=== PATIENT | female | born 1990 | race Hispanic/Latino ===

== ENCOUNTER 2019-10-29 10:48 | Emergency (ER) | payer SELFPAY ==
[2019-10-29] MEDS ORDERED: ONDANSETRON HCL 4 MG/2 ML VIAL ONE ×2 (11:29→14:49)
[2019-10-29] MEDS ORDERED: ACETAMINOPHEN EXTRA STRENGTH 500 MG TABLET ONE (11:30)
[2019-10-29 11:36] LABS: BASOPHILS % (AUTO) 0.4 % (0.0-5.0); EOSINOPHILS % (AUTO) 1.2 % (0.0-8.0); HEMATOCRIT 35.7 % (36-48); LYMPHOCYTES % (AUTO) 33.3 % (21.0-51.0); MEAN CORPUSCULAR HEMOGLOBIN 30.8 pg (27.0-33.0); MEAN CORPUSCULAR HGB CONC 33.6 g/dL (32.0-36.0); MEAN CORPUSCULAR VOLUME 91.5 fL (79-99); MONOCYTES % (AUTO) 6.3 % (3.0-13.0); NEUTROPHILS % (AUTO) 58.6 % (40.0-77.0); PLATELET COUNT (AUTO) 183 K/uL (130-400); RED CELL DISTRIBUTION WIDTH 11.4 % (11.0-15.5); WHITE BLOOD COUNT (AUTO) 5.2 K/uL (4.8-10.8)
[2019-10-29 12:14] LABS: APPEARANCE,URINE Clear (CLEAR); BILIRUBIN,URINE Negative (NEGATIVE); COLOR,URINE Yellow (YELLOW); GLUCOSE, URINE (UA) Negative (NEGATIVE); HCG,QUAL RESULT NEGATIVE (NEGATIVE); KETONES,URINE Negative (NEGATIVE); LEUKOCYTE ESTERASE ,URINE Negative (NEGATIVE); NITRATE,URINE Negative (NEGATIVE); OCCULT BLOOD,URINE Negative (NEGATIVE); PH,URINE 5.5 (5.0-8.0); PROTEIN,URINE Negative (NEGATIVE)
[2019-10-29 12:46] LABS: CREATININE 0.9 mg/dL (0.5-1.5)
[2019-10-29] MEDS ORDERED: KETOROLAC TROMETHAMINE 30MG/ML ONE (12:47)
[2019-10-29 12:50] LABS: BILIRUBIN,TOTAL 0.2 mg/dL (0.2-1.0); TOTAL PROTEIN, SERUM 7.5 g/dL (6.0-8.3)
[2019-10-29] MEDS ORDERED: CEFTRIAXONE SODIUM 500 MG VIAL ONE (14:48)
[2019-10-29] MEDS ORDERED: AZITHROMYCIN 250 MG TABLET PO ONE (14:49)
[2019-10-29] MEDS ORDERED: LIDOCAINE HCL-MPF 1% 2ML VIAL ONE (14:50)
[2019-10-30] MEDS ORDERED: NITROGLYCERIN 1GM/1 INCH PACKET TD ONE (09:27)
== END 2019-10-29 15:02 | disposition home or self-care (01) ==
LOC: EDH 10:48
DX: R10.2 Pelvic and perineal pain (principal); R11.0 Nausea; J45.909 Unspecified asthma, uncomplicated; Z98.890 Other specified postprocedural states
CPT/HCPCS: 36415; 74177; 76856; 80053; 81003; 81025; 85025; 87210; 87486; 87797; 96372; 96374; 96375; 96376; 99285; J0696; J1885; J2405 ×2; J3490

== ENCOUNTER 2020-03-01 06:43 | Emergency (ER) | payer MEDICAID, OTHER ==
[2020-03-01 07:27] LABS: BASOPHILS % (AUTO) 0.2 % (0.0-5.0); EOSINOPHILS % (AUTO) 0.2 % (0.0-8.0); HEMATOCRIT 33.9 % (36-48); LYMPHOCYTES % (AUTO) 10.1 % (21.0-51.0); MEAN CORPUSCULAR HEMOGLOBIN 32.7 pg (27.0-33.0); MEAN CORPUSCULAR HGB CONC 34.5 g/dL (32.0-36.0); MEAN CORPUSCULAR VOLUME 94.7 fL (79-99); MONOCYTES % (AUTO) 5.9 % (3.0-13.0); NEUTROPHILS % (AUTO) 83.4 % (40.0-77.0); PLATELET COUNT (AUTO) 169 K/uL (130-400); RED BLOOD CELL COUNT(AUTO) 3.58 MIL/uL (4.00-5.50); RED CELL DISTRIBUTION WIDTH 12.9 % (11.0-15.5); WHITE BLOOD COUNT (AUTO) 5.2 K/uL (4.8-10.8)
[2020-03-01 07:27] LABS: APPEARANCE,URINE CLEAR (CLEAR); BILIRUBIN,URINE NEGATIVE (NEGATIVE); COLOR,URINE YELLOW (YELLOW); GLUCOSE, URINE (UA) NEGATIVE (NEGATIVE); KETONES,URINE NEGATIVE (NEGATIVE); LEUKOCYTE ESTERASE ,URINE NEGATIVE (NEGATIVE); NITRATE,URINE NEGATIVE (NEGATIVE); OCCULT BLOOD,URINE NEGATIVE (NEGATIVE); PROTEIN,URINE NEGATIVE (NEGATIVE); UROBILINOGEN,URINE 0.2 mg/dL (0.2-1.0)
[2020-03-01 07:42] LABS: BILIRUBIN,TOTAL 0.1 mg/dL (0.2-1.0); CREATININE 0.6 mg/dL (0.5-1.5); POTASSIUM 3.8 mmol/L (3.5-5.1)
[2020-03-01] MEDS ORDERED: METOCLOPRAMIDE 10 MG/2 ML VIAL ONE (07:51)
[2020-03-01] MEDS ORDERED: ACETAMINOPHEN 325 MG TAB ONE (07:52)
[2020-03-01] MEDS ORDERED: DiphenhydrAMINE HCL 50 MG/ML VIAL ONE (07:52)
[2020-03-01] MEDS ORDERED: SODIUM CHLORIDE 0.9% 1000ML 1,000 ML IV ONE (07:53)
== END 2020-03-01 10:27 | disposition home or self-care (01) ==
LOC: EDH 06:43
DX: O98.512 Other viral diseases complicating pregnancy, second trimester (principal); U07.1 COVID-19; O99.512 Diseases of the respiratory system complicating pregnancy, second trimester; J45.909 Unspecified asthma, uncomplicated; Z79.899 Other long term (current) drug therapy; Z3A.19 19 weeks gestation of pregnancy
CPT/HCPCS: 36415; 76805; 80053; 81003; 84702; 85025; 87426; 96361; 96374; 96375; 99284; J1200; J2765; J7030

== ENCOUNTER 2020-07-16 17:57 | Inpatient (IN) | payer OTHER ==
[~2020-07-16] VITALS: Ht 154.9 cm; Wt 81.2 kg
[2020-07-16] MEDS ORDERED: CEFAZOLIN SODIUM 1 GM VIAL IVP PRN (18:30)
[2020-07-16] MEDS ORDERED: OXYTOCIN-LR 20 UNITS/1000 ML 1,000 ML IV SCH (18:30)
[2020-07-16] MEDS ORDERED: LACTATED RINGERS 1000ML 1,000 ML IV SCH (18:30)
[2020-07-16 19:10] LABS: AMPHET/METH SCREEN,URINE NEGATIVE (NEGATIVE); BARBITURATE SCREEN, URINE NEGATIVE (NEGATIVE); BENZODIAZEPINES SCREEN,URINE NEGATIVE (NEGATIVE); CANNABINOID SCREEN,URINE NEGATIVE (NEGATIVE); COCAINE SCREEN,URINE NEGATIVE (NEGATIVE); OPIATE SCREEN,URINE NEGATIVE (NEGATIVE); PHENCYCLIDINE SCREEN,URINE NEGATIVE (NEGATIVE)
[2020-07-16 19:15] LABS: HEMATOCRIT 33.6 % (36-48); MEAN CORPUSCULAR HGB CONC 31.8 g/dL (32.0-36.0); MEAN CORPUSCULAR VOLUME 94.1 fL (79-99); RED BLOOD CELL COUNT(AUTO) 3.57 MIL/uL (4.00-5.50); RED CELL DISTRIBUTION WIDTH 11.7 % (11.0-15.5); WHITE BLOOD COUNT (AUTO) 6.9 K/uL (4.8-10.8)
[2020-07-16] MEDS ORDERED: DURAMORPH PF1 MG/ML 10ML AMP IV ONE (19:21)
[2020-07-16] MEDS ORDERED: EPINEPHRINE 1 MG/ML AMPULE ONE (19:22)
[2020-07-16] MEDS ORDERED: OXYTOCIN 10 UNIT/1ML 10ML VIAL ONE (19:38)
[2020-07-16] MEDS ORDERED: ONDANSETRON HCL 4 MG/2 ML VIAL ONE (19:40)
[2020-07-16] MEDS ORDERED: GLYCOPYRROLATE 1 MG/5 ML SYRINGE ONE (20:07)
[2020-07-16] MEDS ORDERED: EPHEDRINE SULFATE 50 MG/ML AMPULE ONE (20:14)
[2020-07-16] MEDS ORDERED: FENTANYL CITRATE PF 50 MCG/1 ML 2ML VIAL ONE (20:16)
[2020-07-16] MEDS ORDERED: MIDAZOLAM HCL 1 MG/ML 2ML VIAL ONE (20:17)
[2020-07-16] MEDS ORDERED: METHYLERGONOVINE MALEATE 0.2 MG/1 ML ML ONE (20:23)
[2020-07-16 21:10] VITALS: BP 106/65
[2020-07-16] MEDS ORDERED: PROMETHAZINE HCL 25 MG/ML 1ML AMPULE IM PRN (21:15)
[2020-07-16] MEDS ORDERED: SODIUM CHLORIDE 0.9% 10 ML VIAL IVP PRN (21:15)
[2020-07-16] MEDS ORDERED: MEPERIDINE-PF 75 MG/ML SYG IM PRN (21:15)
[2020-07-16] MEDS ORDERED: OXYTOCIN-LR 20 UNITS/1000 ML 1,000 ML IV PRN (21:15)
[2020-07-16] MEDS ORDERED: DEXTROSE 5 %-0.45 % NACL 1,000 ML IV PRN (21:15)
[2020-07-16] MEDS ORDERED: EPHEDRINE SULFATE 50 MG/ML AMPULE IVP PRN (22:00)
[2020-07-16] MEDS ORDERED: ONDANSETRON HCL 4 MG/2 ML VIAL IVP PRN (22:00)
[2020-07-16] MEDS ORDERED: MEPERIDINE-PF 25 MG/ML SYG IVP PRN (22:00)
[2020-07-16] MEDS ORDERED: NALOXONE HCL 0.4 MG/1 ML ML IVP PRN ×3 (22:00)
[2020-07-16] MEDS ORDERED: MEPERIDINE-PF 25 MG/ML SYG ONE (22:03)
[2020-07-16] MEDS: DiphenhydrAMINE HCL 50 MG/ML VIAL IVP PRN (22:28)
[2020-07-16 23:03] LABS: HEMATOCRIT 30.5 % (36-48)
[2020-07-16] MEDS ORDERED: MORPHINE SULFATE 10 MG/ML 1ML VIAL ONE (23:25)
[2020-07-16] MEDS ORDERED: MORPHINE 4 MG SYG (4MG/1ML) IV PRN (23:30)
[2020-07-16 23:54] VITALS: BP 106/70
[2020-07-17] MEDS: DiphenhydrAMINE HCL 50 MG/ML VIAL IVP PRN ×3 (00:38→02:01)
[2020-07-17 04:05] VITALS: BP 101/54
[2020-07-17 06:43] LABS: MEAN CORPUSCULAR HEMOGLOBIN 30.8 pg (27.0-33.0); MEAN CORPUSCULAR HGB CONC 32.9 g/dL (32.0-36.0); MEAN CORPUSCULAR VOLUME 93.6 fL (79-99); RED BLOOD CELL COUNT(AUTO) 2.99 MIL/uL (4.00-5.50); RED CELL DISTRIBUTION WIDTH 11.8 % (11.0-15.5)
[2020-07-17 07:20] VITALS: BP 96/55
[2020-07-17] MEDS ORDERED: HYDROCODONE/ACETAMINOPHEN 5/325 MG TAB PO PRN (07:45)
[2020-07-17] MEDS ORDERED: ACETAMINOPHEN 500 MG TABLET PO PRN (07:45)
[2020-07-17] MEDS ORDERED: BISACODYL 10 MG SUPP.RECT RC PRN (07:45)
[2020-07-17] MEDS ORDERED: LANOLIN 30GM OINTMENT TP PRN (07:45)
[2020-07-17] MEDS: DOCUSATE SODIUM 100 MG CAP PO SCH ×2 (08:15→20:11)
[2020-07-17] MEDS: SIMETHICONE 80 MG TAB.CHEW PO PRN ×2 (08:15→20:10)
[2020-07-17] MEDS: ACETAMINOPHEN-CODEINE 300/30MG TAB PO PRN ×3 (08:18→17:16)
[2020-07-17 08:55] LABS: RAPID PLASMA REAGIN NONREACTIVE (NONREACTIVE)
[2020-07-17 16:33] VITALS: BP 93/47
[2020-07-17] MEDS ORDERED: DIPH,PERTUSS(ACELL),TET VAC/PF 0.5 ML VIAL IM ONE (18:30)
[2020-07-17 20:10] VITALS: BP 83/45
[2020-07-17] MEDS: IBUPROFEN 600 MG TABLET PO PRN (20:11)
[2020-07-17 21:45] VITALS: BP 86/40
[2020-07-18] VITALS: BP 82/40
[2020-07-18] MEDS: IBUPROFEN 600 MG TABLET PO PRN ×2 (02:03→08:06)
[2020-07-18 04:00] VITALS: BP 109/67
[2020-07-18 07:45] VITALS: BP 103/62
[2020-07-18] MEDS: DOCUSATE SODIUM 100 MG CAP PO SCH (08:04)
[2020-07-18] MEDS: SIMETHICONE 80 MG TAB.CHEW PO PRN (08:04)
[2020-07-18 08:13] LABS: HEPATITIS Bs ANTIGEN SCREEN P Negative (Negative)
[2020-07-18 12:00] VITALS: BP 107/71
== END 2020-07-18 12:45 | disposition home or self-care (01) | DRG 787 ==
LOC: LDH 17:57 → WSH 23:50
PROVIDERS: ADMIT Obstetrics & Gynecology; ATTEND Obstetrics & Gynecology
PROC: 10D00Z1 Extraction of Products of Conception, Low, Open Approach (ICD-10-PCS; principal; 2020-07-16 20:15)
PROC: 3E0234Z Introduction of Serum, Toxoid and Vaccine into Muscle, Percutaneous Approach (ICD-10-PCS; 2020-07-17)
DX: O34.211 Maternal care for low transverse scar from previous cesarean delivery (principal); O71.7 Obstetric hematoma of pelvis; Z3A.38 38 weeks gestation of pregnancy; Z37.0 Single live birth; O77.0 Labor and delivery complicated by meconium in amniotic fluid; O62.2 Other uterine inertia; Z23 Encounter for immunization
CPT/HCPCS: 36415; 59510; 80305; 85014; 85018; 85027; 86592; 86701; 86850; 86900; 86901; 87340; 87390; 90715; A4344; G0378; J0171; J0690; J1200; J2175; J2210; J2250; J2270; J2274; J2405; J2590; J3010; J3490; J7120

== ENCOUNTER 2020-08-04 11:45 | Emergency (ER) | payer MEDICAID, OTHER ==
[~2020-08-04] VITALS: Ht 154.9 cm; Wt 66.7 kg
[2020-08-04 11:47] VITALS: BP 115/71
[2020-08-04 12:16] LABS: EOSINOPHILS % (AUTO) 2.9 % (0.0-8.0); HEMATOCRIT 36.2 % (36-48); MEAN CORPUSCULAR HEMOGLOBIN 30.2 pg (27.0-33.0); MEAN CORPUSCULAR HGB CONC 31.8 g/dL (32.0-36.0); MONOCYTES % (AUTO) 5.6 % (3.0-13.0); NEUTROPHILS % (AUTO) 56.3 % (40.0-77.0); PLATELET COUNT (AUTO) 306 K/uL (130-400); RED BLOOD CELL COUNT(AUTO) 3.81 MIL/uL (4.00-5.50); RED CELL DISTRIBUTION WIDTH 12.9 % (11.0-15.5); WHITE BLOOD COUNT (AUTO) 5.2 K/uL (4.8-10.8)
[2020-08-04 12:32] LABS: ALBUMIN 3.7 g/dL (3.5-5.0); BILIRUBIN,TOTAL 0.3 mg/dL (0.2-1.0); CREATININE 0.7 mg/dL (0.5-1.5); POTASSIUM 3.9 mmol/L (3.5-5.1)
[2020-08-04] MEDS ORDERED: IBUPROFEN 600 MG TABLET PO ONE (13:15)
[2020-08-04] MEDS ORDERED: IBUP-2077 PO (14:03)
[2020-08-04] MEDS ORDERED: IBUPROFEN 400 MG TABLET ONE (14:20)
[2020-08-04] MEDS ORDERED: IBUPROFEN 200 MG TAB ONE (14:20)
[2020-08-04 14:28] VITALS: BP 110/62
== END 2020-08-04 14:26 | disposition home or self-care (01) ==
LOC: EDH 11:59
DX: S80.11XA Contusion of right lower leg, initial encounter (principal); X58.XXXA Exposure to other specified factors, initial encounter; Y93.89 Activity, other specified; Y92.89 Other specified places as the place of occurrence of the external cause; Y99.8 Other external cause status
CPT/HCPCS: 36415; 80053; 85025; 85378; 93971